=== PATIENT | female | born 1950 | race American Indian/Alaskan Native ===

== ENCOUNTER 2018-04-30 07:42 | Day surgery (SDC) | payer MEDICARE ==
[2018-04-30] MEDS ORDERED: ECOTRIN PO NR (08:30)
[2018-04-30 08:57] LABS: Basophils % (Auto) 0.4 % (0.0-1.8); Eosinophils % (Auto) 1.1 % (0.0-4.3); Hematocrit 39.9 % (30.3-42.9); Hemoglobin 13.1 gm/dl (10.1-14.3); Lymphocytes # (Auto) 1.8 K/mm3 (1.2-5.4); Lymphocytes % (Auto) 49.8 % (13.4-35.0); Mean Corpuscular HGB Conc 33 % (30-34); Mean Corpuscular Hemoglobin 28 pg (28-32); Mean Corpuscular Volume 84 fl (79-97); Monocytes # (Auto) 0.4 K/mm3 (0.0-0.8); Monocytes % (Auto) 9.5 % (0.0-7.3); Platelet Count 319 K/mm3 (140-440); Red Blood Count 4.72 M/mm3 (3.65-5.03); Red Cell Distribution Width 14.7 % (13.2-15.2)
[2018-04-30] MEDS ORDERED: NACL 0.9% 500 ML 500 ML IV SCH (09:00)
[2018-04-30 09:09] LABS: BUN/Creatinine Ratio 18; Blood Urea Nitrogen 16 mg/dL (7-17); Calcium 9.1 mg/dL (8.4-10.2); Hemolysis Index 141
[2018-04-30 09:11] LABS: INR 0.91 (0.87-1.13)
[2018-04-30 09:12] LABS: Partial Thromboplastin Time 26.4 Sec. (24.2-36.6)
[2018-04-30] MEDS ORDERED: NITROGLYCERIN SYRINGE 3 ML ONE (10:32)
[2018-04-30] MEDS ORDERED: XYLOCAINE 2% INFILTRATI ONE (10:32)
[2018-04-30] MEDS ORDERED: HEPARIN 10,000 UNITS/10 ML ONE (10:32)
[2018-04-30] MEDS ORDERED: HEPARIN/NS 5000 UNIT/500ML(CATH LAB) 1,000 ML IR ONE (10:32)
[2018-04-30] MEDS ORDERED: CALAN ONE (10:32)
[2018-04-30] MEDS ORDERED: VERSED ONE (10:33)
[2018-04-30] MEDS ORDERED: SUBLIMAZE ONE (10:33)
[2018-04-30] MEDS: LOPRESSOR IV ONE ×2 (11:22→11:29)
[2018-04-30] MEDS ORDERED: ULTRAM PO PRN (11:36)
--- NOTE | 2018-04-30 11:39 | Short Stay Summary ---
Short Stay Documentation Date of service: 04/30/18 - History H&P: obtained from office - Allergies and Medications Current Medications: Allergies griseofulvin Allergy (Unverified 04/30/18 07:45) Swelling Penicillins Allergy (Unverified 04/30/18 07:45) Rash Sulfa (Sulfonamide Antibiotics) Allergy (Unverified 04/30/18 07:45) Rash METRACYCLINE Allergy (Uncoded 04/30/18 07:45) Rash TRETRACYCLINE Allergy (Uncoded 04/30/18 07:45) Rash Home Medications Medication Instructions Recorded Confirmed Last Taken Type Aspirin [Aspir-Low] 81 mg PO DAILY 04/30/18 04/30/18 04/29/18 History Atorvastatin Calcium [Lipitor] 40 mg PO DAILY 04/30/18 04/30/18 04/29/18 History Lisinopril [Prinivil] 5 mg PO DAILY 04/30/18 04/30/18 04/29/18 History Metformin HCl [Glucophage] 1,000 mg PO BID 04/30/18 04/30/18 04/29/18 History Metoprolol [Lopressor] 25 mg PO BID 04/30/18 04/30/18 Unknown History Multivit-Min/Iron Fum/Folic AC 1 each PO DAILY 04/30/18 04/30/18 04/29/18 History [Ysonp-Vmiglxj-Svbfeiie Tablet] Nitroglycerin 0.4 mg SL PRN PRN 04/30/18 04/30/18 Unknown History Pantoprazole [Protonix] 40 mg PO QDAY PRN 04/30/18 04/30/18 Unknown History Active Medications Sodium Chloride (Nacl 0.9% 500 Ml) 500 mls @ 50 mls/hr IV DIRECT ALVAREZ Stop: 04/30/18 18:59 Last Admin: 04/30/18 08:45 Dose: 50 mls/hr - Brief post op/procedure progress note Date of procedure: 04/30/18 Pre-op diagnosis: chest pain Post-op diagnosis: same Procedure: see report- normal coronaries and normal lv function Anesthesia: local Estimated blood loss: none Pathology: none - Disposition Condition at discharge: Good Disposition: DC-01 TO HOME OR SELFCARE - Discharge Diagnoses (1) Chest pain Status: Chronic Qualifiers: Chest pain type: unspecified Qualified Code(s): R07.9 - Chest pain, unspecified (2) Hypertension Status: Chronic Qualifiers: Hypertension type: essential hypertension Qualified Code(s): I10 - Essential (primary) hypertension (3) Hyperlipemia, mixed Status: Chronic (4) Diabetes mellitus Status: Chronic Qualifiers: Diabetes mellitus type: type 2 Diabetes mellitus residential service technician insulin use: with residential service technician use Diabetes mellitus complication status: without complication Qualified Code(s): E11.9 - Type 2 diabetes mellitus without complications; Z79.4 - nursing home (current) use of insulin (5) Abnormal stress ECG with treadmill Status: Resolved Short Stay Discharge Plan Activity: advance as tolerated Diet: low fat, low cholesterol, low salt, diabetic Special Instructions: hold Metformin (hold for two days) Follow up with: MARCIA HERNANDEZ MD [Primary Care Provider] - 7 Days
--- NOTE | 2018-04-30 12:28 | Cardiac Catherization Report ---
LEFT HEART CATHETERIZATION ORDERING PHYSICIAN: Tj Patterson MD PRIMARY CARE PHYSICIAN: Isha Chacko MD C PROGRAMMER: Devin Dumont MD, CLINICAL INFORMATION: This is a 67-year-old -[place]ish female with recurrent chest pain with abnormal treadmill stress test is here for a left heart catheterization. DESCRIPTION OF PROCEDURE: Procedure was done under moderate sedation, 1 mg Versed and 50 mcg of fentanyl was given. Total sedation time was 10 minutes. Sedation started on 11:16 a.m., finished at 11:26 a.m. Procedure was done via the right radial artery, normal Larry's test, sterile technique, local anesthesia, 6-Haitian radial sheath inserted. PROCEDURE FINDINGS: The left system was engaged with a JL3.5 catheter. Left main is large and patent, bifurcates into large LAD, is patent. Diagonal 1 is a medium caliber vessel that is patent. Circumflex and AV groove is a large caliber vessel that is patent. OM1 is a medium caliber vessel that is patent. OM2 is a small caliber vessel that is patent. RCA was engaged with JR4, it is a large dominant vessel, patent from proximally and distally. PDA and PLV are [id number] caliber vessel, it is patent. LV gram done in ARMENIAN and JONES view shows normal LV function, EF 55-60%. LVEDP is 20 mmHg, LV is 163/20, aortic is 160/72. No gradient across the aortic valve on pullback. 5-Haitian catheters all taken over guidewire, 6-Haitian radial sheath was discontinued. Radial band applied. No hematoma, no bleeding. SUMMARY: 1. Normal coronaries, left main patent, LAD patent, circumflex patent, RCA patent with normal LV function. 2. Continue risk factor modification. JOB# [id number] TRAVON/IZABEL PETERSEN
[2018-04-30 15:08] VITALS: BP 120/67
== END 2018-04-30 07:43 | disposition home or self-care (01) ==
LOC: CATHLABREC 07:42
PROVIDERS: ATTEND Internal Medicine
DX: R07.89 Other chest pain (principal); I10 Essential (primary) hypertension; E78.2 Mixed hyperlipidemia; E11.9 Type 2 diabetes mellitus without complications; Z88.2 Allergy status to sulfonamides; Z88.0 Allergy status to penicillin; Z88.1 Allergy status to other antibiotic agents; Z88.8 Allergy status to other drugs, medicaments and biological substances; Z79.82 Long term (current) use of aspirin
CPT/HCPCS: 36415; 80048; 85025; 85610; 85730; 93005; 93010; 93458; 99156; C1894; J1644; J2250; J3010; J7040; Q9967